=== PATIENT | female | born 1940 | race Caucasian/White ===

== ENCOUNTER 2019-01-13 10:07 | Day surgery (SDC) | payer MEDICARE, OTHER ==
[~2019-01-13 10:07] MED LIST: ACETAMINOPHEN 1,000 MG/100 ML BTL IVPB ONE; CLINDAMYCIN 600MG/50ML PREMIX 600 MG/50 ML BAG IVPB ONE
[2019-01-13] MEDS ORDERED: PROPOFOL 10 MG/ML VIAL IV ONE (10:08)
[2019-01-13] MEDS ORDERED: KETAMINE HCL 100MG/1ML VIAL INJ ONE (10:08)
[2019-01-13] MEDS ORDERED: ONDANSETRON HCL IV 4 MG/2 ML VIAL IVP ONE (10:08)
[2019-01-13] MEDS ORDERED: ALFENTANIL HCL 500 MCG/1ML, 2ML AMP IV ONE (10:08)
[2019-01-13] MEDS ORDERED: 0.9 % SODIUM CHLORIDE 1000ML 1,000 ML IV ONE (10:50)
[2019-01-13] MEDS ORDERED: BUPIVACAINE 0.5% W/EPI MPF 30 ML VIAL SQ ONE (12:16)
[2019-01-13] MEDS ORDERED: LIDOCAINE 1% W/EPI 1:200,000 MPF 30ML SQ ONE (12:16)
[2019-01-13] MEDS ORDERED: SCOPOLAMINE 1 PATCH TDSY TD ONE (13:34)
--- NOTE | 2019-01-17 11:00 | Operative Note ---
DATE OF SURGERY: 01/13/2019 PREOPERATIVE DIAGNOSIS: Right index fingertip calcific mass. POSTOPERATIVE DIAGNOSIS: Right index fingertip calcific mass. OPERATION: Excision of right index finger calcific mass. SURGEON: Den Ferraro MD ANESTHESIA: Sedation and digital block. COMPLICATIONS: None. ESTIMATED BLOOD LOSS: Minimal. FINDINGS: A pellet-sized calcific globular mass off the tip of the index finger tuft. Sent to pathology. INDICATION: This is an 78-year-old female who has had persistent pain and callus and deformity in her right index finger for several months. Protrusion out the fingertip forming a callus. X-ray in the office showed calcific mass there of the tuft. Scheduled for procedure above. Explained the risks and benefits in detail for the diagnosis and procedure including but not limited to infection, nerve injury, vessel injury, persistent pain, stiffness, numbness, tingling, recurrence of callus, need for further procedures. All of her questions were answered. Rehab and healing course were outlined. Agreed to proceed. PROCEDURE: The patient brought to the OR, placed in the supine position. Sedation was given. Preop antibiotics given. Her right hand index finger prepped and draped in sterile fashion. Prepped again with Chloraprep after it was draped. Intraoperative timeout was performed. Next, we localized the callus off the radial aspect of the index fingertip. Made a longitudinal incision just dorsal to the midline of the fingertip extending around to below the callus and then made an incision above the callus in triangular flap fashion. Opened up this calcific deposit, dissected down to the tuft, elevated the nail plate partially distally as well and then grasped the calcific nodular mass which was about pellet size with a Rongeur and removed it. Trimmed off remaining bone at the end of the tuft and had complete removal. Sent to pathology. Irrigated copiously and removed some of the callus. Excised and then closed with 3-0 nylon. Sterile dressing applied. Digital block was previously performed. The patient tolerated procedure well. No intraoperative complications. Sponge and blade counts correct. Recovery stable. Neurovascularly intact. Discharge as an outpatient. Follow up in 3 weeks. CC: Dr. Pura DODGE
== END 2019-01-13 14:05 | disposition home or self-care (01) ==
LOC: SUR 10:07
PROVIDERS: ATTEND Orthopaedic Surgery
DX: D16.11 Benign neoplasm of short bones of right upper limb (principal); I10 Essential (primary) hypertension; E11.9 Type 2 diabetes mellitus without complications; K90.0 Celiac disease; G62.9 Polyneuropathy, unspecified
CPT/HCPCS: 36416; 82948; J2405; J3490; J7030